=== PATIENT | female | born 1970 | race Caucasian/White ===

== ENCOUNTER 2023-11-08 17:42 | Emergency (ER) | payer BC, SELFPAY ==
[2023-11-08 17:51] VITALS: BP 130/73
[2023-11-08 18:19] LABS: % Basophils 0.3 % (0-2); % Eosinophils 1.2 % (0-6); % Immature Granulocytes 0.8 % (0-0.5); % Lymphocytes 33.9 % (20.5-51.1); % Monocytes 5.6 % (1.7-9.3); % Neutrophils 58.2 % (42.2-75.2); Absolute Eosinophils 0.1 10^3/uL (0-0.7); Absolute Immature Granulocytes 0.1 10^3/uL (0-0.05); Absolute Lymphocytes 2.2 10^3/uL (1.2-3.4); Absolute Monocytes 0.4 10^3/uL (0.1-0.6); Absolute Neutrophils 3.8 10^3/uL (1.4-6.5); Hematocrit 38.7 % (37.0-47.0); Hemoglobin 14.2 g/dL (12.0-16.0); Mean Corp Hgb Conc. 36.7 g/dL (33.0-37.0); Mean Corpuscular Hgb 32.5 pg (27.0-31.0); Mean Corpuscular Volume 88.6 fL (81.0-99.0); Nucleated Red Blood Cells % 0 %; Red Blood Cell Count 4.37 10^6/uL (4.20-5.40); White Blood Cell Count 6.6 10^3/uL (4.8-10.8)
[2023-11-08 18:24] LABS: INR 1.02; PT 13.4 Sec (11.4-14.6)
[2023-11-08 18:26] LABS: ALT (SGPT) 21 U/L (0-35); AST (SGOT) 27 U/L (14-36); Albumin 4.7 g/dl (3.5-5.0); Alkaline Phosphatase 73 U/L (38-126); Blood Urea Nitrogen 21 mg/dl (7-17); Calcium 10.2 mg/dl (8.4-10.2); Carbon Dioxide 26 mmol/L (22-30); Chloride 105 mmol/L (98-107); Glucose 91 mg/dl (70-99); Potassium 3.9 mmol/L (3.5-5.1); Sodium 136 mmol/L (135-145); Total Bilirubin 0.8 mg/dl (0.2-1.3); Total Protein 7.5 g/dl (6.3-8.2); eGFR > 60.00
[2023-11-08 18:37] LABS: Troponin I 0.012 ng/ml
[2023-11-08 18:59] LABS: TSH Reflex To Free T4 1.47 uIU/ml (0.47-4.68)
[2023-11-08 21:30] VITALS: BP 123/86
[2023-11-08 22:00] VITALS: BP 118/55
[2023-11-08 22:16] VITALS: BMI 28.1
[2023-11-08 23:00] VITALS: BP 116/72
--- NOTE | 2023-11-08 23:07 | ED.GENMED ---
History of Present Illness
General
Chief Complaint: Cardiac Symptoms
Source: patient and spouse
Exam Limitations: none
Time Seen by Provider: 11/08/23 21:29
Nursing documentation reviewed up to this point in time: agreed with
Travel History
Have you had any contact with someone who has COVID-19?: No
Do you have any symptoms of coronavirus? Fever > 100 degrees, chills, cough, shortness of breath, sore throat, loss of taste or smell, muscle aches, or headache?: No
History of Present Illness
History of Present Illness:
53-year-old female without significant past medical history presenting to the emergency department today with concerns of central chest discomfort radiating into her neck and jaw shortly after lunch today and resolving at time of arrival to the ER.
Denies associated shortness of breath nausea vomiting diaphoresis. No history of blood clots recent leg swelling recent trauma surgery immobilization estrogen product usage. No family history of early heart disease no smoking history or drinking
history.
Review of Systems
Review of Systems
Allergies reviewed?: Yes
All Other Systems: ROS reviewed and negative except as documented in HPI and ROS
Phy Exam
Physical Exam
Physical Exam:
GENERAL: Alert , in no apparent distress
EYE: pupils equal and reactive
NECK: Supple, no significant adenopathy.
ENT: o/p clr, mmm.
CARDIAC: Regular rate and rhythm .
LUNGS: Clear breath sounds bilaterally, no acute respiratory distress, no wheezes/rales/rhonchi
ABDOMEN: Soft, without focal tenderness, no r/g, no cvat
NEUROLOGICAL: Alert and oriented, no focal neuro deficits
SKIN: Warm and dry, skin intact.
MUSCULOSKELETAL: No edema, well perfused.
PSYCH: Normal and appropriate interaction.
Course
Orders/Labs/Results
Orders:
Orders
11/08/23 17:43
EKG [Electrocardiogram (*1)] Urgent
Reason for Study: Chest Pain
11/08/23 17:44
EKG- Treatment ONCE
11/08/23 17:52
CR Chest - 2 Views Urgent
Comment:
Reason For Exam: chest pain
11/08/23 18:06
Complete Blood Count/With Diff Urgent
Comprehensive Metabolic Panel Urgent
Prothrombin Time Urgent
TSH Reflex To Free T4 Urgent
Troponin I Urgent
11/08/23 22:15
EKG [Electrocardiogram (*1)] Urgent
Reason for Study: Chest Pain
11/08/23 22:16
EKG- Treatment ONCE
11/08/23 23:09
Troponin I Urgent
Abnormal Lab Results
11/08/23
18:06
MCH 32.5 H pg
(27.0-31.0)
Abs Immat Gran (auto) 0.1 H 10^3/uL
(0-0.05)
Immature Gran % 0.8 H %
(0-0.5)
BUN 21 H mg/dl
(7-17)
11/08/23 18:06
11/08/23 18:06
Vital Signs
Initial and Last Documented VS:
Initial Vital Signs
Temp Pulse Resp BP Pulse Ox
98.8 F 66 17 130/73 99
11/08/23 17:51 11/08/23 17:51 11/08/23 17:51 11/08/23 17:51 11/08/23 17:51
Last Documented Vital Signs
Temp Pulse Resp BP Pulse Ox
98.8 F 63 14 116/72 99
11/08/23 17:51 11/08/23 23:45 11/08/23 23:45 11/08/23 23:00 11/08/23 23:45
MDM/Problems Addressed
MDM/Problems Addressed:
53-year-old female presenting to the apartment today with concerns of chest discomfort rating to her jaw and to the neck. No associated symptoms. Described as a burning and slight fullness here EKG is normal heart lung examination normal labs
normal initial troponin negative. Symptoms did resolve just prior to arrival concerning this plan for a 3-hour troponin to fully stratify for ACS. Otherwise no risk factors for PE. Patient well-appearing throughout ER stay second troponin
negative repeated EKG with no changes patient very low risk for ACS at this time will follow-up closely as an outpatient. Return precautions given.
*Critical Care Note
Total Time (30-74mins, 75-104mins- exclusive of procedures): Not Applicable
ED Attending Note
-
Portions of this chart may have been created with voice recognition software.� Occasional wrong word or��sound alike� substitutions may have occurred due to the inherent limitations of voice recognition software.
Discharge Plan
Departure
Patient Disposition: Home (Routine Discharge)
Date of Disposition: 11/08/23
Time of Disposition: 23:50
Patient with high blood pressure during this ER visit?: No
Condition: Good
Covid-19: Not Applicable
Discharge Problem:
Chest pain
Instructions: Chest Pain DCA Follow Up
Referrals:
Dallas Gomez MD [Family Provider] -
Activity Restrictions/Additional Instructions:
You came to the emergency department today with concerns of chest discomfort. Here you had a reassuring evaluation with 2 negative troponin levels, normal EKG and normal chest x-ray. This is reassuring. Please follow closely with cardiology.
Return to the emergency department for any worsening, new or concerning symptoms.
Interventions
Interventions:
*Risk Screen - Suicide Last Done: 11/08/23 17:51
*General Assessment Last Done: 11/08/23 17:51
*Neglect/Abuse Screening Last Done: 11/08/23 17:51
ED- Fall Risk Assessment Last Done: 11/08/23 22:16
*ED COVID-19 Vaccine History Last Done: 11/08/23 17:51
ED- Pulmonary Assessment Last Done: 11/08/23 22:16
ED- Cardiac Assessment Last Done: 11/08/23 22:16
[2023-11-08 23:42] LABS: Troponin I < 0.012 ng/ml
[2023-11-09] VITALS: BP 109/68
== END 2023-11-09 00:26 | disposition home or self-care (01) ==
LOC: EMR 17:42
PROVIDERS: Emergency Medicine; Physician Assistant; EMERGENCY PHYSICIAN Emergency Medicine; FAMILY PHYSICIAN Family Medicine
DX: R07.89 Other chest pain (principal)
CPT/HCPCS: 99285; 71046; 80053; 84443; 84484; 85025; 85610; 93005

== ENCOUNTER → 2023-11-16 06:24 | Outpatient (REF) | payer BC, SELFPAY ==
[2023-11-16 09:38] LABS: % Basophils 0.5 % (0-2); % Eosinophils 2.5 % (0-6); % Immature Granulocytes 0.3 % (0-0.5); % Monocytes 7.2 % (1.7-9.3); % Neutrophils 45.5 % (42.2-75.2); Absolute Eosinophils 0.2 10^3/uL (0-0.7); Absolute Lymphocytes 2.6 10^3/uL (1.2-3.4); Absolute Monocytes 0.4 10^3/uL (0.1-0.6); Absolute Neutrophils 2.7 10^3/uL (1.4-6.5); Hematocrit 39.9 % (37.0-47.0); Hemoglobin 13.6 g/dL (12.0-16.0); Mean Corp Hgb Conc. 34.1 g/dL (33.0-37.0); Mean Corpuscular Hgb 32.1 pg (27.0-31.0); Mean Corpuscular Volume 94.1 fL (81.0-99.0); Mean Platelet Volume 9.6 fL (7.4-10.4); Nucleated Red Blood Cells % 0 %; Platelet Count 193 10^3/uL (130-400); Red Blood Cell Count 4.24 10^6/uL (4.20-5.40); Red Cell Dist. Width 13.2 % (11.5-14.5)
[2023-11-16 09:49] LABS: ALT (SGPT) 17 U/L (0-35); AST (SGOT) 23 U/L (14-36); Albumin 4.1 g/dl (3.5-5.0); Alkaline Phosphatase 63 U/L (38-126); Blood Urea Nitrogen 21 mg/dl (7-17); Calcium 9.9 mg/dl (8.4-10.2); Carbon Dioxide 28 mmol/L (22-30); Chloride 102 mmol/L (98-107); Glucose 114 mg/dl (70-99); HDL Cholesterol 59 mg/dl; LDL Cholesterol, Calculated 108 mg/dl; Potassium 4.5 mmol/L (3.5-5.1); Sodium 139 mmol/L (135-145); Total Bilirubin 0.5 mg/dl (0.2-1.3); Total Cholesterol 183 mg/dl (50-199); Total Protein 6.7 g/dl (6.3-8.2); Triglyceride 83 mg/dl (10-149); Very Low Density Lipoprotein 16 mg/dl (0-30); eGFR > 60.00
[2023-11-16 12:13] LABS: Glycohemoglobin (HgbA1c) 5.6 % (4.0-5.6)
== END ==
LOC: HWLAB 06:24
PROVIDERS: ATTENDING PHYSICIAN Internal Medicine Interventional Cardiology; FAMILY PHYSICIAN Family Medicine; REFERRING PHYSICIAN Specialist
DX: R07.89 Other chest pain (principal); E78.2 Mixed hyperlipidemia; Z01.818 Encounter for other preprocedural examination
CPT/HCPCS: 36415; 80053; 80061; 83036; 85025

== ENCOUNTER → 2023-11-24 12:43 | Outpatient (REF) | payer BC, SELFPAY | LOC: HWRCS 12:43 | PROVIDERS: ATTENDING PHYSICIAN Internal Medicine Interventional Cardiology; FAMILY PHYSICIAN Family Medicine | DX: R07.89 Other chest pain (principal); E78.2 Mixed hyperlipidemia | CPT/HCPCS: 93306 ==

== ENCOUNTER → 2023-11-27 11:01 | Outpatient (REF) | payer BC, SELFPAY | LOC: RCS 11:01 | PROVIDERS: ATTENDING PHYSICIAN Internal Medicine Interventional Cardiology; FAMILY PHYSICIAN Family Medicine | DX: R07.89 Other chest pain (principal); E78.2 Mixed hyperlipidemia | CPT/HCPCS: 93017 ==

== ENCOUNTER → 2024-01-08 10:25 | Outpatient (REF) | payer BC, SELFPAY ==
[2024-01-09 23:24] LABS: Alternaria tenuis <0.10 kU/L (<=0.34); Aspergillus fumigatus <0.10 kU/L (<=0.34); Birch Tree 0.15 kU/L (<=0.34); Box Elder/Maple Tree <0.10 kU/L (<=0.34); Cat Epithelium/Dander <0.10 kU/L (<=0.34); Common Pigweed <0.10 kU/L (<=0.34); Common/Short Ragweed <0.10 kU/L (<=0.34); Cottonwood Tree <0.10 kU/L (<=0.34); Dermatophagoides farinae <0.10 kU/L (<=0.34); Dermatophagoides pteronyssinus <0.10 kU/L (<=0.34); Dog Dander <0.10 kU/L (<=0.34); Elm Tree <0.10 kU/L (<=0.34); German Cockroach <0.10 kU/L (<=0.34); Hormodendrum <0.10 kU/L (<=0.34); IgE 25 kU/L (<=214); Mountain Cedar Tree <0.10 kU/L (<=0.34); Mouse Epithelium <0.10 kU/L (<=0.34); Mucor racemosus <0.10 kU/L (<=0.34); Mugwort Weed <0.10 kU/L (<=0.34); Oak Tree 0.39 kU/L (<=0.34); Penicillium notatum <0.10 kU/L (<=0.34); Sheep Sorrel Weed <0.10 kU/L (<=0.34); Sycamore Tree <0.10 kU/L (<=0.34); Walnut Tree <0.10 kU/L (<=0.34); White Ash Tree <0.10 kU/L (<=0.34); White Mulberry Tree <0.10 kU/L (<=0.34)
[2024-01-09 23:32] LABS: Clam <0.10 kU/L (<=0.34); Codfish <0.10 kU/L (<=0.34); Corn <0.10 kU/L (<=0.34); Egg White 0.44 kU/L (<=0.34); Milk (Cow's) 0.22 kU/L (<=0.34); Peanut <0.10 kU/L (<=0.34); Scallop <0.10 kU/L (<=0.34); Shrimp <0.10 kU/L (<=0.34); Soybean <0.10 kU/L (<=0.34); Walnut/Black Walnut <0.10 kU/L (<=0.34); Wheat <0.10 kU/L (<=0.34)
== END ==
LOC: HWLAB 10:25
PROVIDERS: ATTENDING PHYSICIAN Physician Assistant
DX: L50.9 Urticaria, unspecified (principal)
CPT/HCPCS: 36415; 82785; 86003

== ENCOUNTER 2024-01-09 22:28 | Emergency (ER) | payer BC, SELFPAY ==
[2024-01-09 22:36] VITALS: BP 126/63
[2024-01-09 22:48] LABS: % Basophils 0.1 % (0-2); % Immature Granulocytes 0.6 % (0-0.5); % Lymphocytes 16.3 % (20.5-51.1); % Monocytes 4.7 % (1.7-9.3); % Neutrophils 78.3 % (42.2-75.2); Absolute Immature Granulocytes 0.1 10^3/uL (0-0.05); Absolute Lymphocytes 1.9 10^3/uL (1.2-3.4); Absolute Monocytes 0.5 10^3/uL (0.1-0.6); Absolute Neutrophils 8.9 10^3/uL (1.4-6.5); Hematocrit 35.8 % (37.0-47.0); Hemoglobin 12.6 g/dL (12.0-16.0); Mean Corp Hgb Conc. 35.2 g/dL (33.0-37.0); Mean Corpuscular Hgb 32.1 pg (27.0-31.0); Mean Corpuscular Volume 91.3 fL (81.0-99.0); Mean Platelet Volume 8.5 fL (7.4-10.4); Nucleated Red Blood Cells % 0 %; Platelet Count 213 10^3/uL (130-400); Red Blood Cell Count 3.92 10^6/uL (4.20-5.40); Red Cell Dist. Width 13.4 % (11.5-14.5); White Blood Cell Count 11.4 10^3/uL (4.8-10.8)
[2024-01-09 22:58] LABS: HCG, Serum Qualitative Screen Negative
[2024-01-09 23:07] LABS: ALT (SGPT) 19 U/L (0-35); AST (SGOT) 22 U/L (14-36); Albumin 4.5 g/dl (3.5-5.0); Alkaline Phosphatase 60 U/L (38-126); Blood Urea Nitrogen 24 mg/dl (7-17); Calcium 9.5 mg/dl (8.4-10.2); Carbon Dioxide 23 mmol/L (22-30); Chloride 108 mmol/L (98-107); Glucose 143 mg/dl (70-99); Potassium 4.4 mmol/L (3.5-5.1); Sodium 137 mmol/L (135-145); Total Bilirubin 0.4 mg/dl (0.2-1.3); eGFR > 60.00
[2024-01-10 00:54] VITALS: BP 123/79
[2024-01-10 00:59] VITALS: BMI 29.2
--- NOTE | 2024-01-10 01:26 | ED.GENMED ---
History of Present Illness
General
Chief Complaint: Skin Problem
Source: patient
Exam Limitations: none
Time Seen by Provider: 01/10/24 00:55
Travel History
Have you had any contact with someone who has COVID-19?: No
Do you have any symptoms of coronavirus? Fever > 100 degrees, chills, cough, shortness of breath, sore throat, loss of taste or smell, muscle aches, or headache?: No
History of Present Illness
History of Present Illness:
This is a 53 year old female that comes in with c/o hives. States that on Monday she started with hives and she felt like her throat was closing. States that she took Benadryl and she felt better. States that on Monday she went to see the PCP and
she was given a steroid taper and Omeprazole. States that she has continued with Hives and feels that she is going to climb out of her skin. States that she also took Benadryl 25mg. Denies any fever, chills, chest pain, SOB, abd pain, nausea,
vomiting, diarrhea, headache, dizziness, urinary burning.
Past History
Past History
ED Past Medical History: None; Negative Asthma, HTN, Hypercholesterolemia or NIDDM
ED Past Surgical History: , Orthopedic (carpal tunnel, Left rotator cuff) and Tonsilectomy
Social History
Tobacco: Non-smoker
Alcohol: Occasional
Personal:
Living: with family
Review of Systems
Review of Systems
All Other Systems: ROS reviewed and negative except as documented in HPI and ROS
Constitutional: Reports no symptoms; Denies fever or chills
EENT: Reports no symptoms
Respiratory: Reports no symptoms; Denies cough or trouble breathing
Cardiac: Reports no symptoms; Denies chest pain
ABD/GI: Reports no symptoms; Denies abdominal pain, nausea, vomiting or diarrhea
: Reports no symptoms; Denies dysuria, frequency or urgency
Musculoskeletal: Reports no symptoms
Skin: Reports itching (Hives)
Neurological: Reports no symptoms; Denies dizzy or headache
Psychiatric: Reports no symptoms
Phy Exam
General Physical Exam
General Presentation: well appearing and no apparent distress
General age: appears stated age
General Skin: warm and dry
General Habitus: normal
General Mental: alert
General Hydration: appears well hydrated
ENT Exam
ENT Exam: TM's normal, pharynx normal and neck supple
Eye Exam
Eye Exam: EOMI
Cardiovascular Exam
Cardiovascular Exam: regular rate/rhythm, no edema, no murmur and normal peripheral pulses
Pulmonary Exam
Pulmonary Exam: lungs clear, no respiratory distress, no rales, chest non tender, no crackles, no rhonchi, no wheezing and no cough
Gastrointestinal Exam
Gastrointestinal Exam: normal bowel sounds, non tender, soft, no organomegaly, no pulsatile mass and non distended
Musculoskeletal Exam
Musculoskeletal Exam: full ROM and no edema
Skin Exam
Skin Exam: normal color, warm/dry, no petechia and other (Hives noted cross the upper back and neck area, arms, legs and abd. )
Psychiatric Exam
Psychiatric Exam: normal mood/affect
Course
Orders/Labs/Results
Orders:
Orders
01/09/24 22:40
Test Result ONCE
01/09/24 22:42
CMP [Comprehensive Metabolic Panel] Urgent
Complete Blood Count/With Diff Urgent
HCG, Serum Qualitative Screen Urgent
01/10/24 01:26
Dexamethasone Sod Phosphate [Decadron] 10 mg IV NOW STA
Diphenhydramine [Benadryl] 25 mg IV NOW STA
Famotidine [Pepcid] 20 mg IV NOW STA
Abnormal Lab Results
01/09/24
22:42
WBC 11.4 H 10^3/uL
(4.8-10.8)
RBC 3.92 L 10^6/uL
(4.20-5.40)
Hct 35.8 L %
(37.0-47.0)
MCH 32.1 H pg
(27.0-31.0)
Abs Immat Gran (auto) 0.1 H 10^3/uL
(0-0.05)
Absolute Neuts (auto) 8.9 H 10^3/uL
(1.4-6.5)
Immature Gran % 0.6 H %
(0-0.5)
Neutrophils % 78.3 H %
(42.2-75.2)
Lymphocytes % 16.3 L %
(20.5-51.1)
Chloride 108 H mmol/L
(98-107)
BUN 24 H mg/dl
(7-17)
Glucose 143 H mg/dl
(70-99)
01/09/24 22:42
01/09/24 22:42
WBC slightly elevated (DUE TO STEROIDS). Dehydration. glucose nonfasting. HCG negative,
Vital Signs
Initial and Last Documented VS:
Initial Vital Signs
Temp Pulse Resp BP Pulse Ox
98.8 F 82 19 126/63 98
01/09/24 22:36 01/09/24 22:36 01/09/24 22:36 01/09/24 22:36 01/09/24 22:36
Last Documented Vital Signs
Temp Pulse Resp BP Pulse Ox
98.8 F 67 18 111/69 100
01/09/24 22:36 01/10/24 01:30 01/10/24 01:30 01/10/24 01:30 01/10/24 01:30
MDM/Problems Addressed
Differential Diagnosis Includes:
Allergy to eggs, Hives
MDM/Problems Addressed:
This is a 53 year old female that comes in with c/o hives. States that she saw her PCP on Monday and her blood work. Labs were pulled up here and patient is allergic to eggs which she has been eating. Hives noted over arms, legs, abd, chest and
upper back.
Will give Pepcid, Decadron, and Benadryl.
Back into see patient. States that she is feeling much better. Hives have decreased and are less red. Explained to patient that she can continue with her steroid taper and her omeprazole. Patient to use Benadryl 50mg every 6 hours for the itching.
Follow up with the Cnc Lathe Programmer and or the Crusher Plant Operator. Patient to return with any concerns.
Chronic conditions affecting care:
NA
Acute Exacerbation and/or Progression of Chronic Illness:
NA
*Pulse Oximetry
Patient hypoxic: no
*EKG
Interpreted by ED Provider?: NA
Rate: EKG- N/A
*Production Machine Computer Operator Interpretation
Rate: Production Machine Computer Operator- N/A
*Critical Care Note
Total Time (30-74mins, 75-104mins- exclusive of procedures): Not Applicable
ED Attending Note
-
Portions of this chart may have been created with voice recognition software.� Occasional wrong word or��sound alike� substitutions may have occurred due to the inherent limitations of voice recognition software.
Discharge Plan
Departure
Patient Disposition: Home (Routine Discharge)
Date of Disposition: 01/10/24
Time of Disposition: 02:28
Patient with high blood pressure during this ER visit?: No
Condition: Good
Covid-19: Not Applicable
Discharge Problem:
Hives
Instructions: Hives (DC)
Prescriptions:
No Action
prednisone 10 mg Tablets,Dose Pack
0 mg PO PER PKG DIR
diphenhydramine HCl [Benadryl] 25 mg Capsule
25 mg PO TID PRN (Reason: indigestion)
omeprazole 20 mg Capsule,Delayed Release(Dr/Ec)
20 mg PO DAILY
Referrals:
Phoebe Encarnacion PA-C [Family Provider] - Follow up in 2-3 days
Activity Restrictions/Additional Instructions:
As discussed your blood work shows that you are dehydrated. Please increase your water intake to 8-8oz glasses daily. Your WBC are slightly elevated and this is due to the Steroids. You have been given IV steroids here and you can continue with
the steroid that you were given by the PCP. Continue with the omeprazole. Continue with Benadryl 50mg every 6 hours for the itching. Follow up with the Crusher Plant Operator and/or Cnc Lathe Programmer for further evaluation. IF YOU HAVE ANY OTHER CONCERNS PLEASE
RETURN TO THE EMERGENCY ROOM.
Interventions
Interventions:
*Risk Screen - Suicide Last Done: 01/09/24 22:36
*General Assessment Last Done: 01/09/24 22:36
*Neglect/Abuse Screening Last Done: 01/09/24 22:36
ED- Fall Risk Assessment Last Done: 01/10/24 00:44
*ED COVID-19 Vaccine History Last Done: 01/09/24 22:36
ED-Skin Assessment Last Done: 01/10/24 01:02
Discharge Date and Time
Print Language: [place]
[2024-01-10 01:30] VITALS: BP 111/69
[2024-01-10] MEDS: BENADRYL 25 MG IV (01:33)
[2024-01-10] MEDS: PEPCID 20 MG IV (01:33)
[2024-01-10] MEDS: DECADRON 10 MG IV (01:34)
[2024-01-10 02:30] VITALS: BP 112/68
== END 2024-01-10 02:41 | disposition home or self-care (01) ==
LOC: EMR 22:28
PROVIDERS: EMERGENCY PHYSICIAN Student in an Organized Health Care Education/Training Program; FAMILY PHYSICIAN Physician Assistant
DX: L50.9 Urticaria, unspecified (principal); Z91.012 Allergy to eggs
CPT/HCPCS: 99283; 96374; 96375; 80053; 84703; 85025